=== PATIENT | male | born 1995 | race Caucasian/White ===

== ENCOUNTER 2017-01-01 14:54 | Emergency (ER) | payer OTHER ==
[2017-01-01] MEDS ORDERED: DIPHTH,PERTUSS(ACELL),TET VAC 0.5 ML VIAL IM ONE (14:59)
--- NOTE | 2017-01-01 14:59 | PDOC ---
Rapid Medical Evaluation Time Seen by Provider: 01/01/17 14:55 Medical Evaluation: Allergies Allergy/AdvReac Type Severity Reaction Status Date / Time venom-honey bee Allergy Verified 02/06/14 15:22 [bee venom (honey bee)] 01/01/17 14:57 I have performed a brief in-person evaluation of this patient. The patient presents with a chief complaint of: unknown last tetanus, laceration to rt thumb from jagged metal railing, Pertinent physical exam findings: 2 cm lac to dorsal aspect of rt thumb. Full ROM. no sensory changes distally I have ordered the following: finger xray ordered The patient will proceed to the ED for further evaluation.
[2017-01-01 15:03] VITALS: BP 117/75; PULSE 110; TEMP 98.3; BMI 23.6
--- NOTE | 2017-01-01 15:47 | PDOC ---
History of Present Illness - General Chief Complaint: Injury Stated Complaint: RT THUMB LACERATION Time Seen by Provider: 01/01/17 14:55 History Source: Patient Exam Limitations: No Limitations - History of Present Illness Initial Comments: 01/01/17 15:42 CC PAIN TO LRIGHT THUMB POST CUT ON METAL PIECE OF RAILING THIS PM Occurred: reports: just prior to arrival Severity: reports: mild Pain Location: reports: upper extremity Method of Injury: Yes: direct blow Past History - Past Medical History Allergies/Adverse Reactions: Allergies Allergy/AdvReac Type Severity Reaction Status Date / Time venom-honey bee Allergy Verified 01/01/17 15:01 [bee venom (honey bee)] Home Medications: Ambulatory Orders Cephalexin [Keflex] 500 mg PO BID #10 capsule 01/01/17 Other medical history: none - Immunization History Immunization Up to Date: Yes - Psycho/Social/Smoking Cessation Hx Anxiety: No Suicidal Ideation: No Smoking Status: No Smoking History: Current some day smoker Have you smoked in the past 12 months: Yes Number of Cigarettes Smoked Daily: 6 Information on smoking cessation initiated: Yes 'Breaking Loose' booklet given: 01/01/17 Hx Alcohol Use: No Drug/Substance Use Hx: Yes (nick) Substance Use Type: None Review of Systems - Review of Systems Constitutional: No: Chills, Fever, Malaise HEENTM: No: Symptoms Reported Respiratory: No: Symptoms reported Integumentary: Yes: Other (RIGHT HAND DOMINANT; LACERATION RIGHT THUMB) Neurological: Yes: Weakness (AT EXTENSION). No: Numbness, Paresthesia *Physical Exam - Vital Signs Last Vital Signs Temp Pulse Resp BP Pulse Ox 98.3 F 110 H 18 117/75 100 01/01/17 15:02 01/01/17 15:02 01/01/17 15:02 01/01/17 15:02 01/01/17 15:02 - Physical Exam General Appearance: Yes: Appropriately Dressed. No: Apparent Distress Neck: negative: Tender, Rigid, Lymphadenopathy (R), Lymphadenopathy (L) Respiratory/Chest: positive: Lungs Clear Integumentary: positive: Other (4 CM LACERATION TO DORSAL SURFACE, JUST DISTAL TO MCP) Neurologic: positive: Fully Oriented, Alert, Other (PAIN TO THUMB WITH EXTENSION VS RESIST.). negative: Sensory Deficit Medical Decision Making - Medical Decision Making 01/01/17 15:48 PROBABLE TENDON INJURY; DR MACHADO WILL COME IN TO REPAIR EXTENSOR TENDON INJURY *DC/Admit/Observation/Transfer Diagnosis at time of Disposition: Laceration of finger of right hand Qualifiers: Encounter type: initial encounter Qualified Code(s): S61.219A - Laceration without foreign body of unspecified finger without damage to nail, initial encounter - Discharge Dispostion Disposition: HOME Condition at time of disposition: Stable - Prescriptions Prescriptions: Cephalexin [Keflex] 500 mg PO BID #10 capsule - Referrals Referrals: Dandre Machado MD [Staff Physician] -
[2017-01-01] MEDS ORDERED: CEPHALEXIN MONOHYDRATE 500 MG CAPSULE (UD) PO ONE (15:52)
[2017-01-01] MEDS ORDERED: CEPHALEXIN MONOHYDRATE 500 MG CAPSULE (UD) ONE (17:01)
== END 2017-01-01 17:04 | disposition home or self-care (01) ==
LOC: JERFT 14:54
PROC: 0LQ73ZZ Repair Right Hand Tendon, Percutaneous Approach (ICD-10-PCS; principal; 2017-01-01)
DX: S66.221A Laceration of extensor muscle, fascia and tendon of right thumb at wrist and hand level, initial encounter (principal); W45.8XXA Other foreign body or object entering through skin, initial encounter; W22.8XXA Striking against or struck by other objects, initial encounter; Y93.89 Activity, other specified; Y92.89 Other specified places as the place of occurrence of the external cause
CPT/HCPCS: 73140-TC-RT; 99283-25

== ENCOUNTER 2017-05-14 20:06 | Emergency (ER) | payer SELFPAY ==
[2017-05-14 20:11] VITALS: BP 116/64; PULSE 79; TEMP 98.2; BMI 22.9
--- NOTE | 2017-05-14 20:29 | PDOC ---
History of Present Illness - General Chief Complaint: Suture/Staple Removal(Here) Stated Complaint: STITCHES REMOVAL/RT FOOT PAIN Time Seen by Provider: 05/14/17 20:16 History Source: Patient Exam Limitations: No Limitations - History of Present Illness Initial Comments: 05/14/17 20:23 This is a 22yo man without PMH who presents with 2 days of right anterior ankle pain s/p getting struck while playing soccer. He states he was trying to kick the ball when another individual kicked at the same time striking him in the ankle. Patient has been able to ambulate without difficulty until this evening when pain became worse. Also with sutures in his left thumb x1 month. Timing/Duration: 24 hours Severity: moderate Associated Symptoms: reports: denies symptoms Past History - Past Medical History Allergies/Adverse Reactions: Allergies Allergy/AdvReac Type Severity Reaction Status Date / Time venom-honey bee Allergy Verified 01/01/17 15:01 [bee venom (honey bee)] Home Medications: Ambulatory Orders Cephalexin [Keflex] 500 mg PO BID #10 capsule 01/01/17 Psychiatric Problems: Yes (ADHD) - Immunization History Immunization Up to Date: Yes - Psycho/Social/Smoking Cessation Hx Anxiety: No Suicidal Ideation: No Smoking Status: No Smoking History: Current some day smoker Have you smoked in the past 12 months: Yes Number of Cigarettes Smoked Daily: 6 Information on smoking cessation initiated: No 'Breaking Loose' booklet given: 01/01/17 Hx Alcohol Use: No Drug/Substance Use Hx: Yes (Marijuana) Substance Use Type: Marijuana Review of Systems - Review of Systems Able to Perform ROS?: Yes Is the patient limited Serbian proficient: No Constitutional: No: Symptoms Reported HEENTM: No: Symptoms Reported Respiratory: No: Symptoms reported Cardiac (ROS): No: Symptoms Reported ABD/GI: No: Symptoms Reported : No: Symptoms Reported Musculoskeletal: Yes: Joint Pain (right ankle) Integumentary: No: Symptoms Reported Neurological: No: Symptoms reported *Physical Exam - Vital Signs Last Vital Signs Temp Pulse Resp BP Pulse Ox 98.2 F 79 16 116/64 99 05/14/17 20:08 05/14/17 20:08 05/14/17 20:08 05/14/17 20:08 05/14/17 20:08 - Physical Exam General Appearance: Yes: Appropriately Dressed. No: Apparent Distress HEENT: positive: JESÚS, Normal ENT Inspection Neck: positive: Trachea midline, Supple Respiratory/Chest: positive: Lungs Clear, Normal Breath Sounds. negative: Respiratory Distress Cardiovascular: positive: Regular Rhythm, Regular Rate, S1, S2. negative: Edema , Murmur Vascular Pulses: Dorsalis-Pedis (R): 2+, Doralis-Pedis (L): 2+ Gastrointestinal/Abdominal: positive: Normal Bowel Sounds, Soft. negative: Tender, Organomegaly Musculoskeletal: positive: Normal Inspection Extremity: positive: Normal Capillary Refill, Normal Inspection, Normal Range of Motion (full ROM against resistance to right ankle) Integumentary: positive: Normal Color, Other (8 sutures noted to left anterolateral thumb ) Neurologic: positive: duty manager II-XII NML intact ED Treatment Course - RADIOLOGY Radiology Studies Ordered: Category Date Time Status ANKLE & FOOT-RIGHT* [RAD] Stat Radiology 05/14/17 20:22 Ordered Medical Decision Making - Medical Decision Making 05/14/17 20:27 A: This is a 22yo man without PMH who presents with 2 days of right anterior ankle pain s/p getting struck while playing soccer. He states he was trying to kick the ball when another individual kicked at the same time striking him in the ankle. Patient has been able to ambulate without difficulty until this evening when pain became worse. No deformity, erythema or swelling present. (+) DP pulse. Also with sutures in his left thumb x1 month. No s/s infection. wound well approximated. P: - xray of right foot and ankle - motrin 600mg - ice packs - remove sutures *DC/Admit/Observation/Transfer Diagnosis at time of Disposition: Encounter for removal of sutures, Tendonitis - Discharge Dispostion Disposition: HOME Condition at time of disposition: Stable Admit: No - Patient Instructions Printed Discharge Instructions: DI for Suture Removal Additional Instructions: Rest ankle as much as possible. Put ice on ankle for 20 minutes, then remove for at least 20 minutes. Take ibuprofen as directed by panel wirer's instructions. Eat a well balance diet. Keep hydrated. Return to ED for worsening pain, swelling, redness, inability to walk or any other medical concerns. - Post Discharge Activity Work/School Note: Back to Work
[2017-05-14] MEDS ORDERED: IBUPROFEN 600 MG TABLET (FP) PO ONE ×2 (20:42→20:43)
== END 2017-05-14 21:24 | disposition home or self-care (01) ==
LOC: JERFT 20:06
DX: Z48.02 Encounter for removal of sutures (principal)
CPT/HCPCS: 73610-TC-RT; 73630-TC-RT; 99281-25

== ENCOUNTER 2019-04-18 08:46 | Emergency (ER) | payer SELFPAY ==
[2019-04-18 08:54] VITALS: BP 137/81; PULSE 92; TEMP 97.5; BMI 25.1
--- NOTE | 2019-04-18 09:11 | PDOC ---
History of Present Illness - General Chief Complaint: Chest Pain Stated Complaint: CHEST PAIN Time Seen by Provider: 04/18/19 09:01 Past History - Past Medical History Allergies/Adverse Reactions: Allergies Allergy/AdvReac Type Severity Reaction Status Date / Time venom-honey bee Allergy Verified 01/01/17 15:01 [bee venom (honey bee)] Home Medications: Ambulatory Orders Cephalexin [Keflex] 500 mg PO BID #10 capsule 01/01/17 COPD: No Psychiatric Problems: Yes (ADHD) - Immunization History Immunization Up to Date: Yes - Suicide/Smoking/Psychosocial Hx Smoking Status: No Smoking History: Never smoked Have you smoked in the past 12 months: Yes Number of Cigarettes Smoked Daily: 6 'Breaking Loose' booklet given: 01/01/17 Hx Alcohol Use: No Drug/Substance Use Hx: Yes (marijuana) Substance Use Type: Marijuana Review of Systems - Review of Systems Constitutional: No: Chills, Fever Respiratory: No: Shortness of Breath Cardiac (ROS): Yes: Chest Pain. No: Lightheadedness, Palpitations *Physical Exam - Vital Signs Last Vital Signs Temp Pulse Resp BP Pulse Ox 97.5 F L 92 H 17 137/81 98 04/18/19 08:52 04/18/19 08:52 04/18/19 08:52 04/18/19 08:52 04/18/19 08:52 - Physical Exam General Appearance: Yes: Appropriately Dressed. No: Apparent Distress HEENT: positive: Normal Voice Neck: positive: Supple Respiratory/Chest: positive: Lungs Clear, Normal Breath Sounds. negative: Respiratory Distress Cardiovascular: positive: Regular Rate, S1, S2 Integumentary: positive: Dry, Warm Neurologic: positive: Fully Oriented, Alert, Normal Mood/Affect Heart Score/ECG Review - ECG Intrepretation Comment:: 04/18/19 09:34 Twelve-lead EKG was performed and reviewed by me. There is normal sinus rhythm with a normal rate. The axis is normal. The intervals are normal. There are no ST or T wave abnormalities. Impression: Normal twelve-lead EKG Medical Decision Making - Medical Decision Making 04/18/19 09:01 24-year-old male, no significant history, here with chest pain. Patient states shortly after smoking marijuana this am, he developed vague discomfort to his left chest that has since resolved. Now feels mildly anxious per pt. No shortness of breath, diaphoresis, nausea, vomiting, palpitations, leg pain or swelling. Denies any crack/cocaine use. No obvious RF for DVT/PE See exam CP in setting of marijuana use Since improved Stable and well mariluz w/ clear chests/lungs EKG reviewed w/ ED attg and neg -Dc w/ reassurance -Drug cessation encouraged *DC/Admit/Observation/Transfer Diagnosis at time of Disposition: Chest pain Qualifiers: Chest pain type: unspecified Qualified Code(s): R07.9 - Chest pain, unspecified - Discharge Dispostion Disposition: HOME Condition at time of disposition: Improved - Referrals - Patient Instructions Printed Discharge Instructions: DI for Chest Pain Additional Instructions: Your exam and your EKG were normal here. Please return to the ED as needed - Post Discharge Activity
--- NOTE | 2019-04-18 10:29 | EKG ---
Test Reason : Blood Pressure : / mmHG Vent. Rate : 085 BPM Atrial Rate : 085 BPM P-R Int : 138 ms QRS Dur : 104 ms QT Int : 366 ms P-R-T Axes : 068 062 038 degrees QTc Int : 435 ms NORMAL SINUS RHYTHM WITH SINUS ARRHYTHMIA NORMAL ECG NO PREVIOUS ECGS AVAILABLE Confirmed by MD MARITZA, RYAN ([id number]) on 04/18/2019 10:29:30 AM Referred By: Confirmed By:RYAN SALAS MD
== END 2019-04-18 09:59 | disposition home or self-care (01) ==
LOC: JER 08:46
DX: R07.9 Chest pain, unspecified (principal); F90.9 Attention-deficit hyperactivity disorder, unspecified type
CPT/HCPCS: 93005; 93010; 99282-25

== ENCOUNTER 2021-05-16 19:38 | Emergency (ER) | payer BC, OTHER ==
[2021-05-16 19:44] VITALS: BP 124/78; PULSE 77; TEMP 98.9; BMI 24.3
[2021-05-16] MEDS ORDERED: AZITHROMYCIN 500 MG TABLET PO ONE (20:16)
[2021-05-18 19:08] LABS: SARS-CoV-2 NAA Not Detected (Not Detected)
== END 2021-05-16 20:46 | disposition home or self-care (01) ==
LOC: FER 19:38
DX: R06.02 Shortness of breath (principal); J01.90 Acute sinusitis, unspecified; Z11.52 Encounter for screening for COVID-19
CPT/HCPCS: 71046-TC-FY; 99284-25; C9803; U0003; U0005

== ENCOUNTER 2021-06-05 11:42 | Emergency (ER) | payer BC ==
[2021-06-05 11:52] VITALS: BP 118/54; PULSE 70; TEMP 98.5; BMI 24.3
[2021-06-05] MEDS ORDERED: IBUPROFEN 600 MG TABLET (FP) PO ONE ×2 (12:00→12:05)
== END 2021-06-05 14:21 | disposition home or self-care (01) ==
LOC: FER 11:42
DX: S99.911A Unspecified injury of right ankle, initial encounter (principal); W22.09XA Striking against other stationary object, initial encounter; Y93.66 Activity, soccer
CPT/HCPCS: 73610-TC-RT-FY; 73630-TC-RT-FY; 99283-25

== ENCOUNTER 2021-09-07 16:09 | Emergency (ER) | payer BC ==
[2021-09-07 16:26] VITALS: BP 122/82; PULSE 83; TEMP 98; BMI 25.8
[2021-09-07] MEDS ORDERED: IBUPROFEN 600 MG TABLET (FP) PO ONE ×2 (16:43→16:49)
[2021-09-07] MEDS ORDERED: ACETAMINOPHEN 500 MG TABLET (FP) PO ONE (16:43)
[2021-09-07] MEDS ORDERED: ACETAMINOPHEN 325 MG TABLET (FP) ONE (16:49)
== END 2021-09-07 18:30 | disposition home or self-care (01) ==
LOC: FER 16:09
DX: S99.922A Unspecified injury of left foot, initial encounter (principal); W20.8XXA Other cause of strike by thrown, projected or falling object, initial encounter
CPT/HCPCS: 73610-TC-LT-FY; 73630-TC-LT; 99283-25

== ENCOUNTER 2021-12-16 00:52 | Emergency (ER) | payer BC ==
[2021-12-16 01:16] VITALS: BP 120/79; PULSE 65; TEMP 98.1; BMI 25.1
== END 2021-12-16 03:19 | disposition home or self-care (01) ==
LOC: JER 00:52
DX: F41.9 Anxiety disorder, unspecified (principal)
CPT/HCPCS: 82962; 93005; 93010; 99284-25

== ENCOUNTER 2024-01-08 00:57 | Emergency (ER) | payer BC, OTHER ==
[2024-01-08 01:04] VITALS: BP 100/56; PULSE 88; RESP 20; TEMP 98.3; BMI 31.5
[2024-01-08] MEDS ORDERED: ONDANSETRON 4 MG/2 ML VIAL ONE (01:39)
[2024-01-08] MEDS ORDERED: FAMOTIDINE 20 MG/50 ML IVPB 20 MG/50 ML MG IVPB ONE (01:39)
[2024-01-08] MEDS ORDERED: ACETAMINOPHEN INJECTION 100 ML IVPB ONE (01:39)
[2024-01-08 01:45] LABS: BASO % 1.1 % (0-2.0); HEMATOCRIT 43.4 % (35.4-49); HEMOGLOBIN 14.9 GM/dL (11.7-16.9); LYMPH % 22.5 % (8-40); MCH 31.7 pg (25.7-33.7); MCHC 34.4 g/dl (32.0-35.9); MEAN CELL VOLUME 92.1 fl (80-96); MONO % 8.8 % (3.8-10.2); NEUT % 66.6 % (42.8-82.8); PLATELET COUNT 345 10^3/uL (134-434); RBC 4.71 M/mm3 (4.00-5.60); RDW 12.7 % (11.9-15.9); WHITE BLOOD COUNT 8.8 K/mm3 (4.0-10.0)
[2024-01-08] MEDS: ONDANSETRON 4 MG/2 ML VIAL IVPUSH ONE (01:48)
[2024-01-08] MEDS: FAMOTIDINE 20 MG/50 ML IVPB 20 MG/50 ML MG IVPB ONE (01:48)
[2024-01-08] MEDS: ACETAMINOPHEN 1000 MG/100 ML BAG IVPB ONE (01:48)
[2024-01-08 02:08] LABS: POTASSIUM 4.1 mmol/L (3.5-5.1)
[2024-01-08 02:10] LABS: CALCIUM 9.5 mg/dL (8.5-10.1)
[2024-01-08 02:11] LABS: ALBUMIN 4.1 g/dl (3.4-5.0); BLOOD UREA NITROGEN 10.8 mg/dL (7-18)
[2024-01-08 02:16] LABS: TOT PROT 7.9 g/dl (6.4-8.2)
[2024-01-08 08:09] LABS: PH,URINE 5.5 (5.0-8.0); URINE APPEARANCE Clear; URINE BILIRUBIN Negative (NEGATIVE); URINE COLOR Yellow; URINE GLUCOSE (UA) Negative (NEGATIVE); URINE KETONE Negative (NEGATIVE); URINE LEUK ESTERASE Negative (NEGATIVE); URINE NITRITE Negative (NEGATIVE); URINE PROTEIN Negative (NEGATIVE); URINE UROBILINOGEN 0.2 mg/dL (0.2-1.0)
== END 2024-01-08 04:48 | disposition home or self-care (01) ==
LOC: JER 00:57
PROC: 3E033GC Introduction of Other Therapeutic Substance into Peripheral Vein, Percutaneous Approach (ICD-10-PCS; principal; 2024-01-08)
PROC: 3E033GC Introduction of Other Therapeutic Substance into Peripheral Vein, Percutaneous Approach (ICD-10-PCS; 2024-01-08)
PROC: 3E033GC Introduction of Other Therapeutic Substance into Peripheral Vein, Percutaneous Approach (ICD-10-PCS; 2024-01-08)
DX: R10.32 Left lower quadrant pain (principal); R11.2 Nausea with vomiting, unspecified
CPT/HCPCS: 36415; 74177-TC; 80053; 81003; 83605; 83690; 85025; 99285-25; J0131